=== PATIENT | male | born 1995 | race Caucasian/White ===

== ENCOUNTER → 2018-03-11 20:48 | Emergency (ER) | payer OTHER ==
[~2018-03-11 20:48] MED LIST: NS 0.9% 1000 ML* 1,000 ML IV ONE
--- NOTE | 2018-03-11 21:16 | ED ---
Syncope/Near Syncope - HPI Summary HPI Summary: This pt is a 22 y/o male presenting to [facility] via EMS for possible syncopal episode today. Pt reports he was in a parked car when he suddenly syncopized. He admits to drinking alcohol and not drinking enough water all day. He states he was with a friend in the car who then called EMS. He denies drug use today. Pt notes redness on his face from splitting wood all day and pieces hitting him in the face. Denies chest pain, SOB, nausea, vomiting, abd pain. EMS and [facility] report the pt is an active heroin user. Per EMS [place] he was using [place] and drinking alcohol and passed out. Pt's friend proceeded to do chest compressions and called EMS. Upon EMS arriving to scene pt was awake and alert. Unknown if Narcan was used prior to EMS arriving to scene. Denies any PMHx. He does not take medications on a daily basis. - History Of Current Complaint Time Seen by Provider: 03/11/18 20:59 Hx Obtained From: Patient Onset/Duration: Sudden Onset, Resolved Timing: Minutes Context: Witnessed - by friend Activity At Onset: Other - while in the [place] consuming alcohol and heroin Aggravating Factor(s): Nothing Alleviating Factor(s): Nothing Associated Signs And Symptoms: Negative - Allergies/Home Medications Allergies/Adverse Reactions: Allergies Allergy/AdvReac Type Severity Reaction Status Date / Time No Known Allergies Allergy Verified 03/11/18 21:14 Home Medications: Home Medications NK [No Home Medications Reported] 03/11/18 [History Confirmed 03/11/18] PMH/Surg Hx/FS Hx/Imm Hx Endocrine/Hematology History: Denies: Hx Anticoagulant Therapy, Hx Blood Disorders, Hx Diabetes Cardiovascular History: Denies: Hx Hypertension - Family History Known Family History: Negative: Cardiac Disease, Hypertension, Diabetes - Social History Alcohol Use: None Substance Use Type: Reports: None Smoking Status (MU): Light Every Day Tobacco Smoker Have You Smoked in the Last Year: No Review of Systems Negative: Fever, Chills Negative: Chest Pain Negative: Shortness Of Breath Negative: Abdominal Pain, Vomiting, Nausea Positive: Syncope All Other Systems Reviewed And Are Negative: Yes Physical Exam - Summary Physical Exam Summary: VITAL SIGNS: Reviewed. GENERAL: Patient is a well-developed and nourished male who is lying comfortable in the stretcher. Patient is not in any acute respiratory distress. HEAD AND FACE: No signs of trauma. No ecchymosis, hematomas or skull depressions. No sinus tenderness. EYES: PERRLA, EOMI x 2, No injected conjunctiva, no nystagmus. EARS: Hearing grossly intact. Ear canals and tympanic membranes are within normal limits. MOUTH: Oropharynx within normal limits. NECK: Supple, trachea is midline, no adenopathy, no JVD, no carotid bruit, no c- spine tenderness, neck with full ROM. CHEST: Symmetric, no tenderness at palpation LUNGS: Clear to auscultation bilaterally. No wheezing or crackles. CVS: Regular rate and rhythm, S1 and S2 present, no murmurs or gallops appreciated. ABDOMEN: Soft, non-tender. No signs of distention. No rebound no guarding, and no masses palpated. Bowel sounds are normal. EXTREMITIES: FROM in all major joints, no edema, no cyanosis or clubbing. NEURO: Alert and oriented x 3. No acute neurological deficits. Speech is normal and follows commands. SKIN: Dry and warm Triage Information Reviewed: Yes Vital Signs Reviewed: Yes Diagnostics - Laboratory Result Diagrams: 03/11/18 22:02 03/11/18 22:02 Lab Statement: Any lab studies that have been ordered have been reviewed, and results considered in the medical decision making process. - EKG 21:03 Cardiac Rate: NL - at 95 bpm EKG Rhythm: Sinus Rhythm EKG Interpretation: Normal axis. Normal interval. No ischemic changes Re-Evaluation - Re-Evaluation First Eval Re-Evaluation Time: 22:57 Comment: Pt was ambulated in the ED without any difficulty. Second Eval Re-Evaluation Time: 23:44 Comment: Reviewed the test results with the pt and father. He will be discharged home. Course/Dx Assessment/Plan: Pt is a 22 y/o male presenting to [facility] via EMS for possible syncopal episode today. EMS and [facility] report the pt is an active heroin user. Per EMS [place] was [place] when he was using heroin and drinking alcohol and passed out. Pt's friend proceeded to do chest compressions and called EMS. Upon EMS arriving to scene pt was awake and alert. Unknown if Narcan was used prior to EMS arriving to scene. Test results without any significant abnormalities except for WBC of 16.7, TSH of 7.44. Urine toxicology shows positive opiates, cocaine, and cannabinoids. In the ED course the pt was given IV fluids. Pt was ambulated in the ED without any difficulty. He will be discharged home with his father. Pt is advised to return to the ED for any worsening or new symptoms. - Diagnoses Provider Diagnoses: Polysubstance abuse Discharge - Sign-Out/Discharge Documenting (check all that apply): Patient Departure - Discharge - Discharge Plan Condition: Stable Disposition: HOME Patient Education Materials: Polysubstance Abuse (ED) Referrals: Joceline Cullen DO [Primary Care Provider] - 1 Day (in 1-2 days.) Additional Instructions: Please follow up with your primary care provider in 1-2 days. RETURN TO EMERGENCY DEPARTMENT FOR ANY NEW OR WORSENING SYMPTOMS. - Attestation Statements Document Initiated by Scribe: Yes Documenting Scribe: Laura Herron Provider For Whom Scribe is Documenting (Include Credential): Dr. Luzmaria Donohue MD Scribe Attestation: Laura Davalos, scribed for Dr. Luzmaria Donohue MD on 03/12/18 at 0002.
[2018-03-11 22:09] LABS: ABS Basophils 0 10^3/ul (0-0.2); ABS Eosinophils 0 10^3/ul (0-0.6); ABS Lymphocytes 1.4 10^3/ul (1.0-4.8); ABS Monocytes 0.9 10^3/ul (0-0.8); ABS Neutrophils 14.3 10^3/ul (1.5-7.7); ABS Nucleated RBC 0 10^3/ul; Eosinophil % 0.1 % (0-6); Hematocrit 43 % (42-52); Hemoglobin 15.1 g/dl (14.0-18.0); Lymphocyte % 8.5 % (25-47); Mean Corpuscular HGB Conc 35 g/dl (31-36); Mean Corpuscular Hemoglobin 30 pg (27-31); Mean Corpuscular Volume 87 fL (80-94); Mean Platelet Volume 6.1 um3 (7.4-10.4); Nucleated Red Blood Cells % 0.1; Platelet Count 431 10^3/ul (150-450); Red Blood Count 4.99 10^6/ul (4.00-5.40); Red Cell Distribution Width 13 % (10.5-15); White Blood Count 16.7 10^3/ul (3.5-10.8)
[2018-03-11 22:25] LABS: EGFR Non-African American 93.1 (>60)
[2018-03-11 23:14] VITALS: BP 133/65
[2018-03-11 23:31] LABS: Urine Appearance Clear; Urine Blood Negative (Negative); Urine Color Yellow; Urine Ketones Negative (Negative); Urine Protein 1+(30 mg/dL) (Negative); Urine Red Blood Cell Trace(0-2/hpf) (Absent); Urine Specific Gravity 1.019 (1.010-1.030); Urine Urobilinogen Negative (Negative); Urine White Blood Cell Trace(0-5/hpf) (Absent)
== END | disposition home or self-care (01) ==
LOC: ED 20:48
DX: F19.10 Other psychoactive substance abuse, uncomplicated (principal); R55 Syncope and collapse
CPT/HCPCS: 36415; 80053; 80307; 80320; 81003; 81015; 82550; 84443; 85025; 87086; 93005; 99283; G0480